=== PATIENT | female | born 1990 | race African-American/Black ===

== ENCOUNTER 2017-08-11 21:40 | Emergency (ER) | payer OTHER ==
[~2017-08-11] VITALS: Ht 160 cm; Wt 85.3 kg
[2017-08-11 21:40] VITALS: BP_SYST 120
[2017-08-11 23:20] VITALS: BP_SYST 118
== END 2017-08-11 23:20 | disposition home or self-care (01) ==
LOC: SED 21:40
DX: S63.635A Sprain of interphalangeal joint of left ring finger, initial encounter (principal); Z88.6 Allergy status to analgesic agent; X58.XXXA Exposure to other specified factors, initial encounter; Y93.89 Activity, other specified; Y92.89 Other specified places as the place of occurrence of the external cause; Y99.8 Other external cause status
CPT/HCPCS: 99284